=== PATIENT | female | born 1995 | race Caucasian/White ===

== ENCOUNTER 2021-09-25 17:26 | Inpatient (IN) | payer OTHER ==
[~2021-09-25 17:26] MED LIST: ELECTROLYTE-148 SOLN 1,000 ML IV SCH
[2021-09-25 18:36] VITALS: BMI 38.4
[2021-09-25] MEDS ORDERED: DINOPROSTONE 10 MG VAGINAL SUPPOSITORY VG ONE (18:45)
[2021-09-25] MEDS ORDERED: PROMETHAZINE HCL 25 MG/1 ML VIAL IVPUSH PRN (18:45)
[2021-09-25] MEDS: ELECTROLYTE-148 SOLN 1,000 ML IV SCH (18:45)
[2021-09-25] MEDS ORDERED: BUTORPHANOL TARTRATE 1 MG/ML VIAL IVPB PRN (18:45)
[2021-09-25] MEDS ORDERED: OXYTOCIN 30 UNITS in 0.9% NS 30 UNIT/500 ML INFUS.BAG IVPB SCH (20:00)
[2021-09-25] MEDS ORDERED: OXYTOCIN 30 UNITS in 0.9% NS 30 UNIT/500 ML INFUS.BAG IVPB ONE (20:13)
[2021-09-25 20:26] LABS: BASO % 0.6 % (0-2.0); EOS % 0.3 % (0-4.5); HEMATOCRIT 36.8 % (32.4-45.2); HEMOGLOBIN 12.4 GM/dL (10.7-15.3); MCH 29.2 pg (25.7-33.7); MCHC 33.7 g/dl (32.0-36.0); MEAN CELL VOLUME 86.5 fl (80-96); MEAN PLT VOLUME 8.5 fl (7.5-11.1); NEUT % 72.1 % (42.8-82.8); PLATELET COUNT 367 10^3/uL (134-434); RBC 4.25 M/mm3 (3.60-5.2); RDW 13.9 % (11.6-15.6)
[2021-09-25 20:44] LABS: CALCIUM 8.9 mg/dL (8.5-10.1)
[2021-09-25 20:45] LABS: BLOOD UREA NITROGEN 8.3 mg/dL (7-18)
[2021-09-25 20:47] LABS: CREATININE 0.5 mg/dL (0.55-1.3)
[2021-09-25 20:57] LABS: ACTIVATED PTT 30.2 SECONDS (25.2-36.5); INR 0.97 (0.83-1.09); PROTHROMBIN TIME (PATIENT) 11.1 SEC (9.7-13.0)
[2021-09-25] MEDS ORDERED: BUTORPHANOL TARTRATE 2 MG/ML VIAL ONE (23:37)
[2021-09-25] MEDS ORDERED: PROMETHAZINE HCL 25 MG/1 ML VIAL ONE (23:37)
[2021-09-26] MEDS: ELECTROLYTE-148 SOLN 1,000 ML IV SCH ×2 (02:15→21:15)
[2021-09-26] MEDS ORDERED: AMPICILLIN SODIUM 2 GM VIAL ONE (07:19)
[2021-09-26] MEDS ORDERED: AMPICILLIN - 2 GM in SODIUM CHLORIDE 100 ML IVPB ONE (07:30)
[2021-09-26] MEDS ORDERED: AMPICILLIN SODIUM 1 GM VIAL ONE ×3 (11:24→21:01)
[2021-09-26] MEDS: AMPICILLIN - 1 GM in SODIUM CHLORIDE 100 ML IVPB SCH ×3 (11:30→19:45)
[2021-09-26 12:07] LABS: SARS-CoV-2 NAA Not Detected (Not Detected)
[2021-09-26] MEDS ORDERED: PROMETHAZINE HCL 25 MG/1 ML VIAL IVPB ONE (15:02)
[2021-09-26] MEDS ORDERED: BUTORPHANOL TARTRATE 2 MG/ML VIAL ONE (15:02)
[2021-09-26] MEDS ORDERED: PROMETHAZINE HCL 25 MG/1 ML VIAL ONE (15:02)
[2021-09-26] MEDS ORDERED: BUTORPHANOL TARTRATE 2 MG/ML VIAL IVPUSH ONE (15:02)
[2021-09-26] MEDS ORDERED: BUPIVACAINE HCL/PF 0.25% (2.5MG/ML) 10 ML VIAL ONE (20:03)
[2021-09-26] MEDS ORDERED: FENTANYL/BUPIVACAINE/NS/PF - PCEA - 50 ML DISP.SYRIN EP ONE (20:25)
[2021-09-26] MEDS: FENTANYL/BUPIVACAINE/NS/PF - PCEA - 50 ML DISP.SYRIN EP SCH (20:40)
[2021-09-26] MEDS ORDERED: NALOXONE HCL 0.4 MG/ML VIAL IVPUSH PRN (20:41)
[2021-09-26] MEDS ORDERED: CITRIC ACID/SODIUM CITRATE 30 ML UNIT-DOSE CUP PO ONE (22:42)
[2021-09-26] MEDS ORDERED: AZITHROMYCIN IVPB 500 MG in DEXTROSE 5%-WATER - 250 ML IVPB ONE (22:42)
[2021-09-26] MEDS ORDERED: ceFAZolin 2 GRAM PREMIX BAG IVPB ONE (22:43)
[2021-09-26] MEDS ORDERED: LIDOCAINE HCL 1% EPINEPHRINE 1:200,000 30 ML VIAL (PF) ONE (22:56)
[2021-09-26] MEDS ORDERED: LIDOCAINE HCL 2% (20ML MULTI-DOSE VIAL) ONE (22:57)
[2021-09-26] MEDS ORDERED: CEFAZOLIN 2 GM in SODIUM CHLORIDE 100 ML IVPB ONE (23:00)
[2021-09-26] MEDS ORDERED: PHENYLEPHRINE HCL 10 MG/1 ML SINGLE DOSE VIAL ONE (23:02)
[2021-09-26] MEDS ORDERED: KETAMINE HCL 500 MG/10 ML VIAL ONE (23:13)
[2021-09-26] MEDS ORDERED: MIDAZOLAM HCL 2 MG/2 ML SINGLE DOSE VIAL ONE (23:19)
[2021-09-26] MEDS ORDERED: OXYTOCIN 10 UNITS/ML VIAL ONE ×2 (23:21)
[2021-09-26] MEDS ORDERED: morphine SULFATE/PF 1 MG/2 ML (2cc Syringe - QUVA) ONE ×3 (23:28)
[2021-09-26] MEDS ORDERED: ceFAZolin SODIUM 1 GM VIAL ONE ×2 (23:53)
[2021-09-27] MEDS ORDERED: ONDANSETRON 4 MG/2 ML VIAL IVPUSH PRN (00:22)
[2021-09-27] MEDS ORDERED: IBUPROFEN 600 MG TABLET (FP) PO PRN ×2 (00:22→00:41)
[2021-09-27] MEDS ORDERED: IBUPROFEN 800 MG/8 ML IJ IVPB PRN (00:41)
[2021-09-27] MEDS ORDERED: CARBOPROST TROMETHAMINE 250 MCG/ML AMPUL IM PRN (00:44)
[2021-09-27] MEDS: OXYTOCIN 20 UNITS in 0.9% NS 20 UNIT/1,000 ML INFUS.BAG IV SCH ×2 (01:45→06:00)
[2021-09-27] MEDS ORDERED: IBUPROFEN 800 MG/8 ML IJ IVPB ONE (02:09)
[2021-09-27] MEDS ORDERED: OXYTOCIN 20 UNITS in 0.9% NS 20 UNIT/1,000 ML INFUS.BAG IV ONE (05:30)
[2021-09-27 08:35] LABS: BASO % 0.4 % (0-2.0); HEMATOCRIT 24.3 % (32.4-45.2); HEMOGLOBIN 8.3 GM/dL (10.7-15.3); LYMPH % 12.2 % (8-40); MCH 29.7 pg (25.7-33.7); MCHC 34.1 g/dl (32.0-36.0); MEAN PLT VOLUME 8.2 fl (7.5-11.1); MONO % 6.7 % (3.8-10.2); NEUT % 80.7 % (42.8-82.8); PLATELET COUNT 271 10^3/uL (134-434); RBC 2.79 M/mm3 (3.60-5.2); RDW 14.1 % (11.6-15.6)
[2021-09-27] MEDS ORDERED: IRON SUCROSE INJECTION 200 MG in SODIUM CHLORIDE 90 ML IVPB ONE (08:51)
[2021-09-27] MEDS: ACETAMINOPHEN 325 MG TABLET (FP) PO PRN ×2 (09:14→20:57)
[2021-09-27] MEDS: ENOXAPARIN NA (PORCINE) 40 MG/0.4 ML DISP.SYRIN SQ SCH (09:15)
[2021-09-27] MEDS ORDERED: ELECTROLYTE-148 SOLN 1,000 ML IV SCH (09:15)
[2021-09-27] MEDS: SIMETHICONE 80 MG TAB.CHEW (FP) PO PRN ×3 (09:15→20:57)
[2021-09-27] MEDS ORDERED: LACTATED RINGERS SOLUTION 1,000 ML/1,000 ML INFUS.BAG IV SCH (09:30)
[2021-09-27 10:22] LABS: SYPHILIS W/ RPR CONF NON-REACTIVE (NONREACTIVE)
[2021-09-27 10:52] LABS: HIV INTERPRETATION NEGATIVE (NEGATIVE)
[2021-09-27] MEDS ORDERED: oxyCODONE HCL 5 MG TABLET PO PRN (12:41)
[2021-09-27 13:48] LABS: BASO % 0.5 % (0-2.0); EOS % 0.3 % (0-4.5); HEMATOCRIT 23.3 % (32.4-45.2); HEMOGLOBIN 8.1 GM/dL (10.7-15.3); LYMPH % 19.3 % (8-40); MCHC 34.8 g/dl (32.0-36.0); MEAN CELL VOLUME 86.4 fl (80-96); MEAN PLT VOLUME 7.9 fl (7.5-11.1); MONO % 8.2 % (3.8-10.2); NEUT % 71.7 % (42.8-82.8); PLATELET COUNT 258 10^3/uL (134-434); RDW 14.5 % (11.6-15.6); WHITE BLOOD COUNT 9.8 K/mm3 (4.0-10.0)
[2021-09-27] MEDS ORDERED: METHYLERGONOVINE MALEATE 0.2 MG/1 ML AMP IM STA (20:40)
[2021-09-27] MEDS: SENNOSIDES/DOCUSATE COMBO (SENNA PLUS) TABLET (UD) PO PRN (20:57)
[2021-09-28] MEDS: SIMETHICONE 80 MG TAB.CHEW (FP) PO PRN ×4 (00:08→20:41)
[2021-09-28] MEDS: METHYLERGONOVINE MALEATE 0.2 MG TABLET (FP) PO SCH ×4 (00:08→18:05)
[2021-09-28] MEDS ORDERED: BISACODYL 10 MG SUPP.RECT RC PRN (00:41)
[2021-09-28] MEDS: ACETAMINOPHEN 325 MG TABLET (FP) PO PRN ×4 (01:11→14:01)
[2021-09-28 09:07] LABS: BASO % 0.4 % (0-2.0); HEMATOCRIT 26.8 % (32.4-45.2); HEMOGLOBIN 9.2 GM/dL (10.7-15.3); LYMPH % 13.9 % (8-40); MCHC 34.5 g/dl (32.0-36.0); MEAN CELL VOLUME 87.1 fl (80-96); MEAN PLT VOLUME 7.9 fl (7.5-11.1); MONO % 6.2 % (3.8-10.2); NEUT % 79.5 % (42.8-82.8); PLATELET COUNT 268 10^3/uL (134-434); RBC 3.08 M/mm3 (3.60-5.2); RDW 14.1 % (11.6-15.6); WHITE BLOOD COUNT 8.4 K/mm3 (4.0-10.0)
[2021-09-28] MEDS: ENOXAPARIN NA (PORCINE) 40 MG/0.4 ML DISP.SYRIN SQ SCH (09:55)
[2021-09-28] MEDS: oxyCODONE HCL 5 MG TABLET PO PRN ×2 (16:39→20:40)
[2021-09-28] MEDS: FENTANYL/BUPIVACAINE/NS/PF - PCEA - 50 ML DISP.SYRIN EP SCH (19:05)
[2021-09-28] MEDS: AMPICILLIN - 1 GM in SODIUM CHLORIDE 100 ML IVPB SCH ×2 (19:08→19:23)
[2021-09-28] MEDS: SENNOSIDES/DOCUSATE COMBO (SENNA PLUS) TABLET (UD) PO PRN (20:41)
[2021-09-29] MEDS: METHYLERGONOVINE MALEATE 0.2 MG TABLET (FP) PO SCH ×3 (01:20→14:07)
[2021-09-29] MEDS: ACETAMINOPHEN 325 MG TABLET (FP) PO PRN (05:54)
[2021-09-29] MEDS: SIMETHICONE 80 MG TAB.CHEW (FP) PO PRN (05:54)
[2021-09-29] MEDS: ENOXAPARIN NA (PORCINE) 40 MG/0.4 ML DISP.SYRIN SQ SCH (10:09)
[2021-09-29 10:49] VITALS: BP 117/80; PULSE 80; TEMP 97.8
== END 2021-09-29 14:20 | disposition home or self-care (01) | DRG 540 ==
LOC: JLDR 17:26 → J3W 09-27 03:00
PROVIDERS: ADMIT Specialist; ATTEND Specialist
PROC: 10D00Z1 Extraction of Products of Conception, Low, Open Approach (ICD-10-PCS; principal; 2021-09-26)
DX: O13.4 Gestational [pregnancy-induced] hypertension without significant proteinuria, complicating childbirth (principal); O62.1 Secondary uterine inertia; Z3A.38 38 weeks gestation of pregnancy; Z37.0 Single live birth; N85.8 Other specified noninflammatory disorders of uterus
CPT/HCPCS: 36415; 80048; 85025; 85610; 85730; 86780; 86850; 86900; 86901; 87389; 88307-TC; 94010; C9803-CS; J1756; U0003; U0005